=== PATIENT | male | born 2000 | race Caucasian/White ===

== ENCOUNTER 2018-06-09 12:47 | Outpatient (CLI) | payer BC ==
--- NOTE | 2018-06-09 14:18 | CT ---
CT LUMBAR SPINE: HISTORY: Football injury, back pain. FINDINGS: Axial images were obtained with coronal and sagittal reconstructions. CT images demonstrate gas seen in the right and left SI joints. This may represent possible SI joint injury. No evidence of acute fracture is seen. The lumbar spine is of normal alignment with no heath dence of vertebral body or posterior element pathology or fractures. There is a broad-based central disk protrusion at L4-5 and L5-s1. A small pocket of gas is also seen along the posterior aspect of the right SI joint. IMPRESSION: 1. Broad-based central disk protrusion at L4-5 and L5-S1. 2. No definite evidence of acute lumbar fracture is seen. There does appear to be gas in the SI tapan nts bilaterally. Findings called to Dr. Soriano at 1:40 p.m. on 06/09/2018. CODE CR POS: ANN
== END 2018-06-09 12:48 | disposition home or self-care (01) ==
LOC: CT 12:47
PROVIDERS: ATTEND Orthopaedic Surgery
DX: M54.9 Dorsalgia, unspecified (principal); M51.26 Other intervertebral disc displacement, lumbar region
CPT/HCPCS: 72131